=== PATIENT | female | born 1955 | race Caucasian/White ===

== ENCOUNTER 2020-07-30 08:33 | Outpatient (CLI) | payer OTHER, SELFPAY | END 2020-07-30 08:34 | disposition home or self-care (01) | LOC: ANHBWCAUD 08:35 | PROVIDERS: PCP Nurse Practitioner Family; Visit Provider Otolaryngology | DX: H93.13 Tinnitus, bilateral (principal); H90.3 Sensorineural hearing loss, bilateral | CPT/HCPCS: 92557; 92567 ==

== ENCOUNTER 2020-08-13 08:46 | Outpatient (RCR) | payer OTHER, SELFPAY | END 2020-11-11 23:59 | disposition home or self-care (01) | LOC: ANHBWCAUD 08:46 | PROVIDERS: PCP Nurse Practitioner Family; Visit Provider Otolaryngology | DX: Z46.1 Encounter for fitting and adjustment of hearing aid (principal) | CPT/HCPCS: V5160; V5261 ==

== ENCOUNTER 2021-04-01 13:36 | Outpatient (RCR) | payer OTHER, SELFPAY | END 2021-06-30 23:59 | disposition home or self-care (01) | LOC: ANHBWCAUD 13:36 | PROVIDERS: PCP Nurse Practitioner Family; Visit Provider Nurse Practitioner Family | DX: Z46.1 Encounter for fitting and adjustment of hearing aid (principal) | CPT/HCPCS: 99199 ==

== ENCOUNTER 2021-12-16 15:30 | Outpatient (RCR) | payer MEDICARE, MEDICAID, SELFPAY | END 2022-02-09 23:59 | disposition home or self-care (01) | LOC: ANHBWCAUD 15:30 | PROVIDERS: PCP Nurse Practitioner Family; Visit Provider Nurse Practitioner Family | DX: Z46.1 Encounter for fitting and adjustment of hearing aid (principal) | CPT/HCPCS: 99199 ==

== ENCOUNTER 2023-11-12 13:56 | Emergency (ER) | payer MEDICARE, MEDICAID, SELFPAY ==
[2023-11-12 14:11] VITALS: BP 115/58; PULSE 79; RESP 16; TEMP 37.1; O2SAT 99
--- NOTE | 2023-11-12 15:35 | ED.GENADULT ---
HPI - General Adult General Chief complaint: Ear Stated complaint: Ear pain Time Seen by Provider: 11/12/23 15:36 Source: patient, RN notes reviewed and old records reviewed Mode of arrival: ambulatory Limitations: no limitations History of Present Illness HPI narrative: 68-year-old female to [facility] with complaint of bilateral ear pain, worse on left for 3 days. Patient has not attempted to treat at home. Patient denies fever, cough, sore throat, pertinent medical history. Patient able to tolerate fluids by mouth. Respirations even and nonlabored. Patient in no acute distress. Related Data Home Medications Medication Instructions Recorded Confirmed amlodipine 10 mg tablet 10 mg PO DAILY 07/03/20 07/03/20 buspirone 10 mg tablet 10 mg PO TID 07/03/20 07/03/20 cholecalciferol (vitamin D3) 125 125 mcg PO DAILY 07/03/20 07/03/20 mcg (5,000 unit) capsule estradiol 1 mg tablet 1 mg PO DAILY 07/03/20 07/03/20 ibuprofen 800 mg tablet 800 mg PO Q6H 07/03/20 07/03/20 lamotrigine 100 mg tablet 100 mg PO DAILY 07/03/20 07/03/20 losartan 100 mg tablet 100 mg PO DAILY 07/03/20 07/03/20 metformin 500 mg tablet 500 mg PO DAILY 07/03/20 07/03/20 omega-3 fatty acids 500 mg capsule 500 mg PO DAILY 07/03/20 07/03/20 simvastatin 20 mg tablet 20 mg PO DAILY 07/03/20 07/03/20 ezetimibe 10 mg tablet mg 11/12/23 fezolinetant 45 mg tablet ([place]oz[place]) mg PO 11/12/23 triamterene 37.5 tablet 11/12/23 mg-hydrochlorothiazide 25 mg tablet vortioxetine 10 mg tablet mg 11/12/23 (Trintellix) Allergies Allergy/AdvReac Type Severity Reaction Status Date / Time codeine Allergy Unknown Unknown Verified 11/12/23 15:53 morphine Allergy Unknown Unknown Verified 11/12/23 15:53 Review of Systems Review of Systems: All systems reviewed & are unremarkable except as noted in HPI and below Constitutional: Constitutional: Reports no additional constitutional complaints Eyes: Eyes: Reports no additional eye complaints ENT: Reports as per HPI and Reports otalgia ( Bilateral; worse on left) Cardiovascular: Cardiovascular: Reports no additional cardiovascular complaints, Denies chest pain and Denies dyspnea Respiratory: Respiratory: Reports no additional respiratory complaints, Denies cough and Denies dyspnea Musculoskeletal: Musculoskeletal: Reports no additional musculoskeletal complaints Neurologic: Reports system reviewed and no additional complaints, except as documented Psychiatric: Psychiatric: Reports no additional psychiatric complaints PMFSH Family History Family History Father Alcoholism Mother Alcoholism Hypertension Cancer Social History Social History Smoking status: Never smoker Alcohol intake: never Substance use: never Comments At the time of my signature, I reviewed and agree with the nursing past medical, surgical, social, and family history. There is no relevant family history pertinent to the patient complaint. Exam Const: General: cooperative, healthy appearing, comfortable, no acute distress, alert and well nourished Nutritional Appearance: well nourished Orientation/consciousness: patient oriented x3 Limitations: no limitations HENMT: Head: normal to inspection Ears: Abnormal EAC present cerumen impaction on the right and EAC tenderness on the left and TM abnormal dull on the left, erythematous on the left, with fluid behind the TM on the left and with loss of landmarks on the left Face/Nose/Sinus: Normal external nose present, Normal nares present, normal facial exam, No erythema and No edema Face and sinus: normal facial exam, no erythema and no edema Mouth: Yes Normal oral and palatal mucosa present Throat: postnasal drainage Eyes: General: appearance normal, both eyes and all related structures Neck: Neck: normal visual inspection, full ROM and no meningeal signs Ly
== END 2023-11-12 16:02 | disposition home or self-care (01) ==
PROVIDERS: Emergency Provider Nurse Practitioner Family
DX: H66.92 Otitis media, unspecified, left ear (principal); H61.23 Impacted cerumen, bilateral
CPT/HCPCS: 99213; G0463

== ENCOUNTER 2024-02-15 14:00 | Outpatient (RCR) | payer MEDICARE, MEDICAID, SELFPAY | END 2024-02-22 23:59 | disposition home or self-care (01) | LOC: ANHBWCAUD 14:00 | DX: Z46.1 Encounter for fitting and adjustment of hearing aid (principal) | CPT/HCPCS: 92593; 99199 ==